=== PATIENT | male | born 1995 | race Hispanic/Latino ===

== ENCOUNTER 2022-05-10 01:02 | Emergency (ER) | payer SELFPAY ==
[2022-05-10] MEDS ORDERED: ONDANSETRON 4 MG/2 ML VIAL ONE (02:22)
[2022-05-10] MEDS ORDERED: NA CHLORIDE 0.9% 1,000 ML ONE (02:23)
[2022-05-10] MEDS ORDERED: GLUCAGON 1 MG/VIAL ONE ×3 (02:23→03:46)
[2022-05-10 02:25] LABS: Absolute Lymphocytes (CBC) 1.9 K/uL (0.7-4.9); Hematocrit 44.3 % (39.6-49.0); Lymphocytes % 16.3 % (15.3-44.8); MCV 78.8 fL (80-100); MPV 7.3 fL (7.6-11.3); RBC Red Blood Cell Count 5.62 M/uL (4.33-5.43)
[2022-05-10 02:41] LABS: Albumin 4.3 g/dL (3.4-5.0); Bilirubin Total 0.6 mg/dL (0.2-1.0); Protein, Total 8.6 g/dL (6.4-8.2)
[2022-05-10 02:45] LABS: Potassium 4.1 mmol/L (3.5-5.1)
--- NOTE | 2022-05-10 03:03 | EDPHYS ---
Physician Documentation [facility] Name: Ruben Briseno Age: 27 yrs Sex: Male : 1995 Arrival Date: 05/10/2022 Time: 01:03 Bed 7 Private MD: MELANIE Physician Kareem Nicholas HPI: 05/10 01:19 This 27 yrs old Male presents to ER via Ambulatory with complaints of Foreign reji Body In Throat. 01:19 The patient presents to the emergency department with nausea, vomiting. Onset: The reji symptoms/episode began/occurred just prior to arrival. Possible causes: FOOD BOLUS IN ESOPHGUS. The symptoms are aggravated by nothing. The symptoms are alleviated by nothing. Associated signs and symptoms: The patient has no apparent associated signs or symptoms. Severity of symptoms: At their worst the symptoms were mild in the emergency department the symptoms are unchanged. The patient has not experienced similar symptoms in the past. Historical: - Allergies: :18 No Known Allergies; tw5 - Home Meds: :18 None [Active]; tw5 - PMHx: :18 None; tw5 - PSHx: :18 None; tw5 - Immunization history:: Flu vaccine is not up to date. - Social history:: Smoking status: Patient denies any tobacco usage or history of. - Family history:: not pertinent. ROS: 01:19 Constitutional: Negative for fever, chills, and weight loss, Eyes: Negative for injury, reji pain, redness, and discharge, ENT: Negative for injury, pain, and discharge, Neck: Negative for injury, pain, and swelling, Cardiovascular: Negative for chest pain, palpitations, and edema, Respiratory: Negative for shortness of breath, cough, wheezing, and pleuritic chest pain, Back: Negative for injury and pain, : Negative for injury, bleeding, discharge, and swelling, MS/Extremity: Negative for injury and deformity, Skin: Negative for injury, rash, and discoloration, Neuro: Negative for headache, weakness, numbness, tingling, and seizure, Psych: Negative for depression, anxiety, suicide ideation, homicidal ideation, and hallucinations, Allergy/Immunology: Negative for hives, rash, and allergies, Endocrine: Negative for neck swelling, polydipsia, polyuria, polyphagia, and marked weight changes, Hematologic/Lymphatic: Negative for swollen nodes, abnormal bleeding, and unusual bruising. 01:19 Abdomen/GI: Positive for nausea and vomiting. Exam: 01:19 Constitutional: This is a well developed, well nourished patient who is awake, alert, reji and in no acute distress. Head/Face: Normocephalic, atraumatic. Eyes: Pupils equal round and reactive to light, extra-ocular motions intact. Lids and lashes normal. Conjunctiva and sclera are non-icteric and not injected. Cornea within normal limits. Periorbital areas with no swelling, redness, or edema. Neck: Trachea midline, no thyromegaly or masses palpated, and no cervical lymphadenopathy. Supple, full range of motion without nuchal rigidity, or vertebral point tenderness. No Meningismus. Chest/axilla: Normal chest wall appearance and motion. Nontender with no deformity. No lesions are appreciated. Cardiovascular: Regular rate and rhythm with a normal S1 and S2. No gallops, murmurs, or rubs. Normal PMI, no JVD. No pulse deficits. Respiratory: Lungs have equal breath sounds bilaterally, clear to auscultation and percussion. No rales, rhonchi or wheezes noted. No increased work of breathing, no retractions or nasal flaring. Abdomen/GI: Soft, non-tender, with normal bowel sounds. No distension or tympany. No guarding or rebound. No evidence of tenderness throughout. Back: No spinal tenderness. No costovertebral tenderness. Full range of motion. Male : Normal genitalia with no discharge or lesions. Skin: Warm, dry with normal turgor. Normal color with no rashes, no lesions, and no evidence of cellulitis. MS/ Extremity: Pulses equal, no cyanosis. Neurovascular intact. Full, normal range of motion. Neuro: Awake and alert, GCS 15, oriented to person, place, time, and situation. Cranial nerves II-XII grossly intact. Motor strength 5/5 in all extremities. Sensory grossly intact. Cerebellar exam normal. Normal gait. Psych: Awake, alert, with orientation to person, place and time. Behavior, mood, and affect are within normal limits. :19 ENT: Posterior pharynx: no acute changes, Airway: normal, no evidence of obstruction, Tonsils: are normal in appearance, Uvula: normal, midline, swelling, is not appreciated, erythema, is not appreciated, that is mild, exudate, is not appreciated. 02:30 ECG was reviewed by the Attending Physician. [facility] Vital Signs: 01:16 BP 149 / 85; Pulse 70; Resp 18; Temp 99.6; Pulse Ox 97% ; Weight 112.49 kg; Height 5 tw5 ft. 11 in. (180.34 cm); Pain 5/10; 02:15 BP 138 / 54; Pulse 72; Resp 16; Pulse Ox 98% on R/A; jb4 03:15 BP 155 / 79; Pulse 69; Resp 20; Pulse Ox 100% on R/A; jb4 04:46 BP 137 / 81; Pulse 74; Resp 16; Pulse Ox 100% on R/A; jb4 06:15 BP 127 / 90; Pulse 70; Resp 18; Pulse Ox 98% on R/A; jb4 01:16 Body Mass Index 34.59 (112.49 kg, 180.34 cm) tw5 MDM: 01:14 Patient medically screened. [facility] 01:20 Differential diagnosis: Nonspecific abd pain, gastritis, pancreatitis, viral reji gastroenteritis, gastroenteritis, FOOD BOLUS IN ESOPHGUS. Data reviewed: vital signs, nurses notes, lab test result(s), EKG, radiologic studies, plain films. 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 Test interpretation: by ED physician or midlevel provider: ECG, plain radiologic studies. Counseling: I had a detailed discussion with the patient and/or guardian regarding: the historical points, exam findings, and any diagnostic results supporting the discharge/admit diagnosis, lab results, radiology results. 05/10 01:18 Order name: CBC with Diff; Complete Time: 02:38 [facility] 05/10 01:18 Order name: Comprehensive Metabolic Panel; Complete Time: 04:08 [facility] 05/10 01:18 Order name: Chest Single View XRAY [facility] 05/10 01:22 Order name: Strep; Complete Time: 04:08 reji 05/10 03:05 Order name: SARS RAPID; Complete Time: 04:08 ds4 05/10 03:21 Order name: Throat Culture EDAL 05/10 01:18 Order name: EKG; Complete Time: 01:19 [facility] 05/10 01:18 Order name: EKG - Nurse/Tech; Complete Time: 02:32 reji 05/10 02:42 Order name: PO challenge: soda; Complete Time: 03:18 reji EC:30 Rate is 64 beats/min. Rhythm is regular. QRS [place] is Normal. IA interval is normal. QRS reji interval is normal. QT interval is normal. No Q waves. T waves are Normal. No ST changes noted. Clinical impression: Normal ECG and No evidence of ischemia. Interpreted by me. Reviewed by me. Administered Medications: 02:32 Drug: NS 0.9% 1000 ml Route: IV; Rate: 1 bolus; Site: right antecubital; tw5 03:30 Follow up: Response: No adverse reaction; IV Status: Completed infusion; IV Intake: jb4 1000ml 02:32 Drug: Zofran (Ondansetron) 4 mg Route: IVP; Site: right antecubital; tw5 03:00 Follow up: Response: No adverse reaction; Marked relief of symptoms jb4 02:32 Drug: GlucaGen (glucagon) 1 mg Route: IVP; Site: right antecubital; tw5 03:00 Follow up: Response: No adverse reaction jb4 03:49 Drug: GlucaGen (glucagon) 1 mg Route: IVP; Site: right antecubital; jb4 04:15 Follow up: Response: No adverse reaction jb4 Disposition Summary: 05/10/22 03:02 Transfer Ordered Transfer Location: [facility] reji Reason: Higher level of care reji Condition: Fair reji Problem: new reji Symptoms: have improved reji Accepting Physician: to [facility](05/10/22 06:48) justa Diagnosis - Esophageal obstruction reji - Food in esophagus reji Forms: - Medication Reconciliation Form reji - SBAR form reji Signatures: Dispatcher [employer] Kareem Roth MD MD cha Bryson, James RN RN jb4 Kristin Alonzo tw5 Corrections: (The following items were deleted from the chart) 06:48 03:02 to [facility] reji marr
--- NOTE | 2022-05-10 03:03 | ER ---
Nurse's Notes [facility] Name: Ruben Briseno Age: 27 yrs Sex: Male : 1995 Arrival Date: 05/10/2022 Time: 01:03 Bed 7 Private MD: Diagnosis: Esophageal obstruction;Food in esophagus Presentation: 05/10 01:16 Chief complaint: Patient states: "I was eating steak and when I started to cough so I tw5 swallowed and it got stuck. I tried to go outside and cough it up but I felt like it was getting more stuck. I tried drinking some coke to get it down but anything I tried drinking just came back up.". Coronavirus screen: Vaccine status: Patient reports being unvaccinated. Ebola Screen: Patient negative for fever greater than or equal to 101.5 degrees Fahrenheit, and additional compatible Ebola Virus Disease symptoms Patient denies exposure to infectious person. Patient denies travel to an Ebola-affected area in the 21 days before illness onset. Initial Sepsis Screen: Does the patient meet any 2 criteria? No. Patient's initial sepsis screen is negative. Does the patient have a suspected source of infection? No. Patient's initial sepsis screen is negative. Risk Assessment: Do you want to hurt yourself or someone else? Patient reports no desire to harm self or others. Onset of symptoms was May 10, 2022 at 00:00. 01:16 Method Of Arrival: Ambulatory tw5 01:16 Acuity: LALITO 2 tw5 Triage Assessment: 01:18 General: Appears in no apparent distress. Behavior is calm, cooperative, appropriate tw5 for age. Pain: Pain currently is 5 out of 10 on a pain scale. 01:19 EENT: Throat with gag reflex present, patient states that he is having difficulty tw5 swallowing his saliva . Respiratory: Airway is patent Trachea midline Respiratory effort is even, unlabored. GI:. Historical: - Allergies: 01:18 No Known Allergies; tw5 - Home Meds: 01:18 None [Active]; tw5 - PMHx: 01:18 None; tw5 - PSHx: 01:18 None; tw5 - Immunization history:: Flu vaccine is not up to date. - Social history:: Smoking status: Patient denies any tobacco usage or history of. - Family history:: not pertinent. Screenin:19 [facility] ED Fall Risk Assessment (Adult) History of falling in the last 3 months, tw5 including since admission. Abuse screen: Denies threats or abuse. Denies injuries from another. Nutritional screening: Difficulty chewing/swallowing? Yes. Tuberculosis screening: No symptoms or risk factors identified. Assessment: 02:00 General: Appears in no apparent distress. uncomfortable, Behavior is calm, cooperative, jb4 appropriate for age. Pain: Denies pain. Neuro: Level of Consciousness is awake, alert, obeys commands, Oriented to person, place, time, situation. Cardiovascular: Patient's skin is warm and dry. Respiratory: Airway is patent Respiratory effort is even, unlabored, Respiratory pattern is regular, symmetrical, Denies shortness of breath. GI: No signs and/or symptoms were reported involving the gastrointestinal system. : No signs and/or symptoms were reported regarding the genitourinary system. EENT: No signs and/or symptoms were reported regarding the EENT system. Derm: Skin is intact, Skin is pink, warm \\T\\ dry. Musculoskeletal: Circulation, motion, and sensation intact. Range of motion: intact in all extremities. 03:00 Reassessment: Patient appears in no apparent distress at this time. Patient and/or jb4 family updated on plan of care and expected duration. Pain level reassessed. Patient is alert, oriented x 3, equal unlabored respirations, skin warm/dry/pink. 04:00 Reassessment: Patient appears in no apparent distress at this time. Patient and/or jb4 family updated on plan of care and expected duration. Pain level reassessed. Patient is alert, oriented x 3, equal unlabored respirations, skin warm/dry/pink. 05:00 Reassessment: Patient appears in no apparent distress at this time. Patient and/or jb4 family updated on plan of care and expected duration. Pain level reassessed. Patient is alert, oriented x 3, equal unlabored respirations, skin warm/dry/pink. 06:00 Reassessment: Patient appears in no apparent distress at this time. Patient and/or jb4 family updated on plan of care and expected duration. Pain level reassessed. Patient is alert, oriented x 3, equal unlabored respirations, skin warm/dry/pink. Vital Signs: 01:16 BP 149 / 85; Pulse 70; Resp 18; Temp 99.6; Pulse Ox 97% ; Weight 112.49 kg; Height 5 tw5 ft. 11 in. (180.34 cm); Pain 5/10; 02:15 BP 138 / 54; Pulse 72; Resp 16; Pulse Ox 98% on R/A; jb4 03:15 BP 155 / 79; Pulse 69; Resp 20; Pulse Ox 100% on R/A; jb4 04:46 BP 137 / 81; Pulse 74; Resp 16; Pulse Ox 100% on R/A; jb4 06:15 BP 127 / 90; Pulse 70; Resp 18; Pulse Ox 98% on R/A; jb4 01:16 Body Mass Index 34.59 (112.49 kg, 180.34 cm) tw5 ED Course: 01:03 Patient arrived in ED. ja2 01:14 Kareem Nicholas MD is Attending Physician. reji 01:16 Abby Atkins, WINTER is Primary Nurse. kd3 01:18 Triage completed. tw5 01:18 Arm band placed on. tw5 01:31 Chest Single View XRAY In Process Unspecified. EDMS 02:20 Initial lab(s) drawn, by ia, sent to lab. Inserted saline lock: 18 gauge in right jb4 antecubital area, using aseptic technique. Blood collected. 03:24 SARS RAPID Sent. jb4 04:00 IV discontinued, intact, bleeding controlled, No redness/swelling at site. Pressure jb4 dressing applied. 04:00 Inserted saline lock: 20 gauge in left antecubital area, using aseptic technique. jb4 06:46 No provider procedures requiring assistance completed. Patient transferred, IV remains jb4 in place. Administered Medications: 02:32 Drug: NS 0.9% 1000 ml Route: IV; Rate: 1 bolus; Site: right antecubital; tw5 03:30 Follow up: Response: No adverse reaction; IV Status: Completed infusion; IV Intake: jb4 1000ml 02:32 Drug: Zofran (Ondansetron) 4 mg Route: IVP; Site: right antecubital; tw5 03:00 Follow up: Response: No adverse reaction; Marked relief of symptoms jb4 02:32 Drug: GlucaGen (glucagon) 1 mg Route: IVP; Site: right antecubital; tw5 03:00 Follow up: Response: No adverse reaction jb4 03:49 Drug: GlucaGen (glucagon) 1 mg Route: IVP; Site: right antecubital; jb4 04:15 Follow up: Response: No adverse reaction jb4 Intake: 03:30 IV: 1000ml; Total: 1000ml. jb4 Outcome: 03:02 ER care complete, transfer ordered by MD. mendoza 06:46 Discharged to home ambulatory. jb4 06:46 Condition: stable 06:46 Discharge instructions given to patient, Instructed on the need for transfer, Demonstrated understanding of instructions. 06:48 Patient left the ED. jb4 Signatures: Dispatcher [employer] EDKareem Hood MD MD cha Bryson, James, RN RN jb4 Ignacia Mosley Tiffany tw5 Abby Atkins, RN RN kd3
[2022-05-10 03:48] LABS: SARS-CoV-2 Antigen Rapid Res Negative (Negative)
[2022-05-10 07:15] VITALS: TEMP 99.6
[2022-05-10 07:19] VITALS: BP 127/90; O2SAT 98
--- NOTE | 2022-05-10 19:22 | RAD REPORT ---
EXAM DESCRIPTION: RAD - Chest Single View - 05/10/2022 1:29 am CLINICAL HISTORY: The patient is 27 years old and is Male; COUGH TECHNIQUE: Frontal view of the chest. COMPARISON: No relevant prior studies available. FINDINGS: LUNGS: Unremarkable. No consolidation. PLEURAL SPACE: Unremarkable. No pneumothorax. HEART: Unremarkable. No cardiomegaly. MEDIASTINUM: Unremarkable. BONES/JOINTS: Unremarkable. UPPER ABDOMEN: Unremarkable as visualized. IMPRESSION: No acute cardiopulmonary process. Electronically signed by: Larissa Corea MD 05/10/2022 1:57 AM RECRUITER MANAGER Due to temporary technical issues with the PACS/Fluency reporting system, reports are being signed by the in house radiologists without review as a courtesy to insure prompt reporting. The interpreting radiologist is fully responsible for the content of the report.
--- NOTE | 2022-05-12 08:35 | EKG ---
Test Date: 2022-05-10 Test Time: 02:25:35 Animal Care Supervisor: DAWNA MEASUREMENT RESULTS: Intervals: Rate: 64 [place]: 184 QRSD: 98 QT: 428 QTc: 441 [place]: P: 65 [place]: 184 QRS: 104 T: 53 INTERPRETIVE STATEMENTS: Normal sinus rhythm with sinus arrhythmia Rightward axis Borderline ECG No previous ECG available for comparison Electronically Signed On 05-12-22 08:32:45 SKIVER MACHINE by Roe Moser
== END 2022-05-10 06:48 | disposition short-term general hospital (02) ==
LOC: ER 01:02
DX: K22.2 Esophageal obstruction (principal); Z20.822 Contact with and (suspected) exposure to COVID-19
CPT/HCPCS: 36415; 71045; 80053; 85025; 87070; 87081; 87811; 93005; 96361; 96374; 96375; 99284; J1610; J2405; J7030

== ENCOUNTER 2023-06-23 18:53 | Observation (INO) | payer SELFPAY ==
[2023-06-23] MEDS ORDERED: GLUCAGON 1 MG/VIAL ONE ×2 (19:05→19:55)
--- NOTE | 2023-06-23 20:42 | EDPHYS ---
Physician Documentation [facility] Name: Ruben Briseno Age: 28 yrs Sex: Male : 1995 Arrival Date: 06/23/2023 Time: 18:53 Bed 7 Private MD: ED Physician Cole Alonzo HPI: 06/23 20:35 This 28 yrs old Male presents to ER via Ambulatory with complaints of Foreign kb Body In Throat. 20:41 Patient is a 28-year-old male who was eating steak at 6:00 and felt a piece get stuck kb in his throat. States he has been unable to get it down, everything that he swallows comes right back up. Reports foreign body sensation in esophagus. No respiratory distress. States this is happened once before and the glucagon and carbonated drink through a straw worked to get it down.. Historical: - Allergies: 19:02 No Known Allergies; ld1 - Home Meds: 19:02 None [Active]; ld1 - PMHx: 19:02 None; ld1 - PSHx: 19:02 None; ld1 - Immunization history:: Adult Immunizations up to date. - Social history:: Smoking status: Patient denies any tobacco usage or history of. Patient/guardian denies using alcohol. ROS: 20:35 Constitutional: Negative for fever, chills, and weight loss, kb 20:35 ENT: Positive for foreign body sensation, 20:35 All other systems are negative, Exam: 20:35 Constitutional: This is a well developed, well nourished patient who is awake, alert, kb and in no acute distress. Head/Face: Normocephalic, atraumatic. ENT: Moist Mucous membranes Cardiovascular: Regular rate Respiratory: Respirations even and unlabored. No increased work of breathing. Talking in full sentences Abdomen/GI: Soft, non-tender. No distention Skin: Warm, dry with normal turgor. Normal color. MS/ Extremity: Pulses equal, no cyanosis. Neurovascular intact. Full, normal range of motion. Neuro: Awake and alert, GCS 15, oriented to person, place, time, and situation. Moves all extremities. Normal gait. Vital Signs: 19:01 BP 161 / 94; Pulse 74; Resp 18; Temp 98(TE); Pulse Ox 100% on R/A; Weight 113.4 kg; ld1 Height 5 ft. 1 in. ; Pain 0/10; 19:06 BP 161 / 95; Pulse 76; Resp 18; Temp 98; Pulse Ox 99% on R/A; as9 19:30 BP 138 / 91; Pulse 73; Resp 18; Temp 98; Pulse Ox 99% on R/A; as9 21:24 BP 149 / 70; Pulse 93; Resp 18; Temp 98; Pulse Ox 99% on R/A; rv2 19:01 Body Mass Index 47.24 (113.40 kg, 154.94 cm) ld1 19:01 Pain Scale: Adult ld1 [place] Coma Score: 19:46 Eye Response: spontaneous(4). Motor Response: obeys commands(6). Verbal Response: as9 oriented(5). Total: 15. MDM: 18:57 Patient medically screened. kb 20:35 Data reviewed: vital signs, nurses notes. kb 20:37 Consideration of Admission/Observation Patient was admitted/placed on observation. kb Escalation of care including admission/observation considered. Management of patient was discussed with the following: Hospitalist: Dr Walls accepts pt for admission. Video Engineer: Gaurav consulted. Wants pt NPO, protonix drip and IV fluids. Will see in the morning. . Counseling: I had a detailed discussion with the patient and/or guardian regarding the historical points, exam findings, and any diagnostic results supporting the discharge/admit diagnosis, lab results, the need for further work-up and treatment in the hospital. 20:40 ED course: treatment unsuccessful in ED. Will admit pt. kb 06/23 20:40 Order name: CBC with Diff; Complete Time: 21:08 kb 06/23 20:40 Order name: Basic Metabolic Panel; Complete Time: 21:26 kb 06/23 21:01 Order name: Urinalysis w/ reflexes EDUT 06/23 21:01 Order name: CONS Physician Consult EDUT 06/23 19:00 Order name: IV Start; Complete Time: 19:04 kb 06/23 19:48 Order name: PO challenge: give coke through a straw; Complete Time: 19:51 kb 06/23 20:40 Order name: NPO; Complete Time: 20:42 kb Administered Medications: 19:15 Drug: Glucagon IVP 1 mg IVP once Route: IVP; Site: right forearm; as9 19:58 Follow up: Response: No adverse reaction rv2 19:58 Drug: Glucagon IVP 1 mg IVP once Route: IVP; Site: right wrist; rv2 21:34 Follow up: Response: No adverse reaction rv2 21:33 Drug: Pantoprazole IV 8 mg/hr IV at 25 ml/hr continuous; (Standard dilution is 80 mg in rv2 250 mL NS) Route: IV; Rate: 25 ml/hr; Site: right wrist; 21:34 Follow up: IV Status: Infusion continued upon admission rv2 Disposition: 06/24 19:58 Co-signature as Attending Physician, Cole Alonzo MD I reviewed the patient's care rt provided by the Advanced Practice Provider and agree with the diagnosis and treatment plan. Disposition Summary: 06/23/23 20:42 Hospitalization Ordered Notes: Hospitalization Status: Observation kb Provider: Eriberto Walls Location: Telemetry/MedSurg (observation) kb Condition: Stable kb Problem: new kb Symptoms: are unchanged kb Bed/Room Type: Standard Room Assignment: 406(06/23/23 21:05) Diagnosis - Foreign body in esophagus kb Forms: - Medication Reconciliation Form kb - SBAR form kb - Leadership Thank You Letter kb Signatures: Dispatcher [employer] Iona Khoury FNP-C FNP-Saida Calderon, RN RN kl Lottie Dennis RN RN ld1 Cole Alonzo MD MD rt MAURICE He Ron, RN RN rv2 Haseeb Jean RN RN as9 Corrections: (The following items were deleted from the chart) 06/23 21:05 20:42 kb kl
--- NOTE | 2023-06-23 20:42 | ER ---
Nurse's Notes [facility] Name: Ruben Briseno Age: 28 yrs Sex: Male : 1995 Arrival Date: 06/23/2023 Time: 18:53 Bed 7 Private MD: Diagnosis: Foreign body in esophagus Presentation: 06/23 19:01 Chief complaint: Patient states: Pt was eating dinner, food got stuck in throat at ld1 1800. Coronavirus screen: At this time, the client does not indicate any symptoms associated with coronavirus-19. Ebola Screen: No symptoms or risks identified at this time. Initial Sepsis Screen: Does the patient meet any 2 criteria? No. Patient's initial sepsis screen is negative. Does the patient have a suspected source of infection? No. Patient's initial sepsis screen is negative. Risk Assessment: Do you want to hurt yourself or someone else? Patient reports no desire to harm self or others. Onset of symptoms was June 23, 2023. 19:01 Method Of Arrival: Ambulatory ld1 19:01 Acuity: LALITO 3 ld1 Triage Assessment: 19:02 General: Appears in no apparent distress. comfortable, Behavior is calm, cooperative, ld1 appropriate for age. Pain: Denies pain. EENT: No signs and/or symptoms were reported regarding the EENT system. Reports Food stuck in throat. Neuro: Level of Consciousness is awake, alert, obeys commands, Oriented to person, place, time, situation. Cardiovascular: Capillary refill < 3 seconds Patient's skin is warm and dry. Respiratory: Airway is patent Respiratory effort is even, unlabored. GI: Abdomen is flat, non-distended. : No signs and/or symptoms were reported regarding the genitourinary system. Derm: No signs and/or symptoms reported regarding the dermatologic system. Musculoskeletal: No signs and/or symptoms reported regarding the musculoskeletal system. 20:30 GI:. rv2 Historical: - Allergies: 19:02 No Known Allergies; ld1 - Home Meds: 19:02 None [Active]; ld1 - PMHx: 19:02 None; ld1 - PSHx: 19:02 None; ld1 - Immunization history:: Adult Immunizations up to date. - Social history:: Smoking status: Patient denies any tobacco usage or history of. Patient/guardian denies using alcohol. Screenin:[address] [facility] ED Fall Risk Assessment (Adult) History of falling in the last 3 months, mb9 including since admission No falls in past 3 months (0 pts) Confusion or Disorientation No (0 pts) Intoxicated or Sedated No (0 pts) Impaired Gait No (0 pts) Mobility Assist Device Used No (0 pt) Altered Elimination No (0 pt) Score/Fall Risk Level 0 - 2 = Low Risk Oriented to surroundings, Maintained a safe environment, Educated pt \T\ family on fall prevention, incl call for assistance when getting out of bed. Abuse screen: Denies threats or abuse. Nutritional screening: No deficits noted. Tuberculosis screening: No symptoms or risk factors identified. Assessment: 19:04 General: Appears in no apparent distress. Behavior is calm, cooperative. Pain: Denies mb9 pain. Neuro: Lozada Agitation-Sedation Scale (RASS): 0 - Alert and Calm Level of Consciousness is awake, alert, obeys commands, Oriented to person, place, time, situation, Appropriate for age. Cardiovascular: Patient's skin is warm and dry. Respiratory: Airway is patent Respiratory effort is even, unlabored, Respiratory pattern is regular, symmetrical. GI: No signs and/or symptoms were reported involving the gastrointestinal system. : No signs and/or symptoms were reported regarding the genitourinary system. EENT: Throat is clear. Derm: Skin is pink, warm \T\ dry. Musculoskeletal: Range of motion: intact in all extremities. 19:46 Reassessment: Patient and/or family updated on plan of care and expected duration. Pain as9 level reassessed. Neuro: Level of Consciousness is awake, alert, obeys commands, Oriented to person, place, time, situation, Appropriate for age. Cardiovascular: Capillary refill < 3 seconds Patient's skin is warm and dry. 20:32 Reassessment: Patient states symptoms have not improved. PO CHALLENGE UNSUCCESSFUL.. rv2 Vital Signs: 19:01 BP 161 / 94; Pulse 74; Resp 18; Temp 98(TE); Pulse Ox 100% on R/A; Weight 113.4 kg; ld1 Height 5 ft. 1 in. ; Pain 0/10; 19:06 BP 161 / 95; Pulse 76; Resp 18; Temp 98; Pulse Ox 99% on R/A; as9 19:30 BP 138 / 91; Pulse 73; Resp 18; Temp 98; Pulse Ox 99% on R/A; as9 21:24 BP 149 / 70; Pulse 93; Resp 18; Temp 98; Pulse Ox 99% on R/A; rv2 19:01 Body Mass Index 47.24 (113.40 kg, 154.94 cm) ld1 19:01 Pain Scale: Adult ld1 Francis Coma Score: 19:46 Eye Response: spontaneous(4). Motor Response: obeys commands(6). Verbal Response: as9 oriented(5). Total: 15. ED Course: 18:55 Patient arrived in ED. mr 18:57 Darron Iona, [facility] kb 18:57 Cole Alonzo MD is Attending Physician. kb 18:59 Jazmin Martinez RN is Primary Nurse. mb9 19:02 Triage completed. ld1 19:02 Arm band placed on right wrist. ld1 19:04 Placed in gown. Bed in low position. Call light in reach. Side rails up X 1. Client mb9 placed on continuous cardiac and pulse oximetry monitoring. NIBP monitoring applied. 19:04 Inserted saline lock: 20 gauge in right forearm, using aseptic technique. mb9 19:05 No provider procedures requiring assistance completed. mb9 20:41 Eriberto Walls MD is Hospitalizing Provider. kb 21:24 Patient admitted, IV remains in place. rv2 Administered Medications: 19:15 Drug: Glucagon IVP 1 mg IVP once Route: IVP; Site: right forearm; as9 19:58 Follow up: Response: No adverse reaction rv2 19:58 Drug: Glucagon IVP 1 mg IVP once Route: IVP; Site: right wrist; rv2 21:34 Follow up: Response: No adverse reaction rv2 21:33 Drug: Pantoprazole IV 8 mg/hr IV at 25 ml/hr continuous; (Standard dilution is 80 mg in rv2 250 mL NS) Route: IV; Rate: 25 ml/hr; Site: right wrist; 21:34 Follow up: IV Status: Infusion continued upon admission rv2 Medication: 19:05 VIS not applicable for this client. mb9 Outcome: 20:42 Decision to Hospitalize by Provider. kb 21:23 Admitted to Tele accompanied by nurse, via wheelchair, room 406, with chart, Report rv2 called to MAHI MAX 21:23 Condition: good 21:23 Instructed on the need for admit, 21:34 Patient left the ED. rv2 Signatures: Iona Rob FNP-Dave PRUETT-Jazmin Quispe, Reg Reg mr DennisLottie, RN RN ld1 Jazmin Martinez, RN RN mb9 WINTER HeII, Rohan, RN RN rv2 Haseeb Jean RN RN as9
[2023-06-23] MEDS ORDERED: ONDANSETRON 4 MG/2 ML VIAL IV PRN (20:54)
[2023-06-23] MEDS: NA CHLORIDE 0.9% 1,000 ML IV SCH (21:00)
[2023-06-23 21:05] LABS: Absolute Lymphocytes (CBC) 2.7 K/uL (0.7-4.9); Hematocrit 42.2 % (39.6-49.0); MPV 7.6 fL (7.6-11.3); Platelets 323 thou/uL (152-406); RBC Red Blood Cell Count 5.34 M/uL (4.33-5.43)
[2023-06-23 21:19] LABS: Potassium 3.9 mEq/L (3.5-5.1)
[2023-06-23] MEDS ORDERED: PANTOPRAZOLE 40 MG INJ ONE (21:29)
[2023-06-23] MEDS ORDERED: NA CHLORIDE 0.9% 250 ML ONE (21:29)
[2023-06-23 21:42] VITALS: O2SAT 99
[2023-06-23 22:28] VITALS: BMI 35.4
[2023-06-23] MEDS: NA CHLORIDE 0.9% 1,000 ML ONE (22:51)
[2023-06-23] MEDS: PANTOPRAZOLE INJ 80 MG in NA CHLORIDE 0.9% 250 ML IV SCH (22:52)
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
[2023-06-24] MEDS: PANTOPRAZOLE INJ 80 MG in NA CHLORIDE 0.9% 250 ML IV SCH (08:00)
[2023-06-24] MEDS: ENOXAPARIN 40 MG/0.4 ML SQ SCH (08:23)
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
[2023-06-24 09:32] VITALS: BP 145/82; TEMP 97.4
== END 2023-06-24 10:20 | disposition home or self-care (01) ==
LOC: ER 18:53 → 4TH 20:54
PROVIDERS: ADMIT Internal Medicine Nephrology; ATTEND Hospitalist
DX: T17.228A Food in pharynx causing other injury, initial encounter (principal); W44.F3XA Food entering into or through a natural orifice, initial encounter; Y93.89 Activity, other specified; Y92.9 Unspecified place or not applicable
CPT/HCPCS: 36415; 80048; 85025; 99285; C9113; G0378; J1610; J1650; J7030; J7050